=== PATIENT | male | born 1950 | race Caucasian/White ===

== ENCOUNTER 2017-06-25 08:16 | Day surgery (SDC) | payer OTHER, BC ==
[2017-06-21 11:55] VITALS: BMI 27.4
[2017-06-25] MEDS ORDERED: DEXAMETHASONE SOD PHOSPHATE/PF 10 MG/ML SDV ONE (11:16)
[2017-06-25] MEDS ORDERED: ROPIVACAINE HCL 0.5% 30ML VIAL ONE (11:16)
[2017-06-25] MEDS ORDERED: MIDAZOLAM HCL 2 MG/2 ML SINGLE DOSE VIAL ONE (11:16)
[2017-06-25] MEDS ORDERED: EPINEPHrine/PF 1 MG/1 ML (1:1,000) AMPULE ONE ×2 (11:45→12:40)
[2017-06-25] MEDS ORDERED: ceFAZolin SODIUM 1 GM VIAL ONE (12:09)
[2017-06-25] MEDS ORDERED: ONDANSETRON 4 MG/2 ML VIAL ONE (13:10)
[2017-06-25] MEDS ORDERED: HYDROmorphone HCL CARPU-JECT 1 MG/1 ML DISP.SYRIN ONE ×2 (13:15→13:36)
[2017-06-25] MEDS ORDERED: HYDROmorphone HCL CARPU-JECT 1 MG/1 ML DISP.SYRIN IVPUSH ONE ×3 (13:15→13:37)
[2017-06-25] MEDS ORDERED: ONDANSETRON 4 MG/2 ML VIAL IVPUSH PRN (13:22)
[2017-06-25] MEDS ORDERED: oxyCODONE HCL 5 MG TABLET PO PRN (13:22)
[2017-06-25] MEDS ORDERED: LACTATED RINGERS SOLUTION 1,000 ML IV SCH (13:30)
[2017-06-25] MEDS ORDERED: hydrALAZINE HCL 20 MG/ML VIAL IVPUSH ONE ×2 (13:44→14:36)
[2017-06-25] MEDS ORDERED: hydrALAZINE HCL 20 MG/ML VIAL ONE (13:48)
[2017-06-25] MEDS ORDERED: HYDROmorphone HCL CARPU-JECT 1 MG/1 ML DISP.SYRIN IVPUSH PRN (14:35)
[2017-06-25 15:35] VITALS: TEMP 97.5
[2017-06-25 16:12] VITALS: BP 156/86; PULSE 72
--- NOTE | 2017-06-27 23:17 | OP ---
DATE OF OPERATION: 06/25/2017 SURGEON: Larry Garnica MD PROOF CLERK: BELLA Crowley PREOPERATIVE DIAGNOSES: 1. Right shoulder rotator cuff tear. 2. Right shoulder biceps tendon tear, long head. 3. Right shoulder adhesive capsulitis. 4. Right shoulder impingement. 5. Right shoulder acromioclavicular degenerative joint disease. 6. Right shoulder superior, low anterior, and posterior synovitis. POSTOPERATIVE DIAGNOSES: 1. Right shoulder rotator cuff tear. 2. Right shoulder biceps tendon tear, long head. 3. Right shoulder adhesive capsulitis. 4. Right shoulder impingement. 5. Right shoulder acromioclavicular degenerative joint disease. 6. Right shoulder superior, low anterior, and posterior synovitis. PROCEDURES: 1. Right shoulder arthroscopy with arthroscopic rotator cuff repair. 2. Right shoulder arthroscopy with biceps tenodesis. 3. Right shoulder arthroscopy with resection of adhesives. 4. Right shoulder arthroscopy with subacromial decompression. 5. Right shoulder arthroscopy with resection of acromioclavicular joint. 6. Right shoulder arthroscopy with debridement. FINDINGS: 1. Full-thickness rotator cuff tear. 2. Extensive tear and greater than 80% biceps tendon glenohumeral portion, long head. 3. Glenohumeral synovitis. 4. Superior, low anterior, and posterior synovitis to biceps tendon. 5. Diffuse fraying anterior and posterior labrum. 6. Type 2 acromion with thickened scar tissue in the subchondral space. 7. Inferior spurs to the clavicle at the acromioclavicular joint. 8. Full-thickness tear of supraspinatus. 9. Partial tear of subscapularis. REPAIR TYPE: Biceps tendon was released and a biceps repair was placed by placing a suture through the long head of the biceps tendon and securing to the bleeding bone bed along the greater tuberosity. Three anchors were then placed into the supraspinatus and incorporated into the biceps tenodesis into the bleeding bone bed along the long head and biceps tendon. PROCEDURE: Informed consent was obtained. The patient was taken to the operating room where the upper extremity was prepped and draped in a sterile fashion. The shoulder was manipulated for a full range of motion. Posterior incision portal was made and directed to glenohumeral joint. Under direct visualization, an anterior incision and portal was made. Extensive synovitis, as well as chondral injuries throughout the glenohumeral joint were dbrided and removed. Any identified labral injuries, including superior labral tear, anterior and posterior, and anterior labrum torn portions were removed as well. Rotator cuff was visualized and noted to have full-thickness tear. The edges were debrided. Posterior incision portal was redirected to subacromial space where a lateral incision portal was made. Excessive and thickened scar tissue noted throughout the subacromial space, including bursal and scar tissue, were removed. The type 2 acromion was converted into a flattened type 1 using a chip for subacromial decompression. Distal inferior spur at the distal clavicle was also dbrided with the use of accessory portal in the AC joint. The edges of the rotator cuff were identified. Sutures were placed into the rotator cuff and secured using anchors throughout the greater tuberosity. Prior to securing, a bleeding bed was made using a small chip, creating a bleeding surface of the rotator cuff insertion. The shoulder was then drained. A single suture as placed on all portals and a sterile dressing was placed. The patient was transferred to the recovery room without complication. JOHN GARNICA M.D. [id number]
== END 2017-06-25 16:14 | disposition home or self-care (01) ==
LOC: FASU 08:16
PROVIDERS: ATTEND Orthopaedic Surgery
PROC: 0LS24ZZ Reposition Left Shoulder Tendon, Percutaneous Endoscopic Approach (ICD-10-PCS; 2017-06-25)
PROC: 0RNK4ZZ Release Left Shoulder Joint, Percutaneous Endoscopic Approach (ICD-10-PCS; 2017-06-25)
PROC: 0RBK4ZZ Excision of Left Shoulder Joint, Percutaneous Endoscopic Approach (ICD-10-PCS; 2017-06-25)
PROC: 0LB24ZZ Excision of Left Shoulder Tendon, Percutaneous Endoscopic Approach (ICD-10-PCS; principal; 2017-06-25 12:18)
DX: M75.102 Unspecified rotator cuff tear or rupture of left shoulder, not specified as traumatic (principal); S46.112A Strain of muscle, fascia and tendon of long head of biceps, left arm, initial encounter; M75.02 Adhesive capsulitis of left shoulder; M75.42 Impingement syndrome of left shoulder; M19.012 Primary osteoarthritis, left shoulder; M65.812 Other synovitis and tenosynovitis, left shoulder; X58.XXXA Exposure to other specified factors, initial encounter; Y93.9 Activity, unspecified; Y92.9 Unspecified place or not applicable
CPT/HCPCS: 94760

== ENCOUNTER 2024-10-19 05:31 | Day surgery (SDC) | payer OTHER, BC ==
[2024-10-17 17:02] VITALS: BMI 27.4
[2024-10-19] MEDS ORDERED: ACETAMINOPHEN 500 MG TABLET (FP) PO ONE (09:12)
[2024-10-19 16:02] VITALS: BP 140/53; PULSE 56; RESP 18; TEMP 98
== END 2024-10-19 15:46 | disposition home or self-care (01) ==
LOC: JASU-SURG 05:31
PROVIDERS: ATTEND Pain Medicine Pain Medicine
PROC: 3E0T3BZ Introduction of Anesthetic Agent into Peripheral Nerves and Plexi, Percutaneous Approach (ICD-10-PCS; principal; 2024-10-19 15:30)
DX: M47.816 Spondylosis without myelopathy or radiculopathy, lumbar region (principal)
CPT/HCPCS: 76000-TC-FY

== ENCOUNTER 2025-01-18 06:24 | Day surgery (SDC) | payer OTHER, BC ==
[2025-01-16 16:57] VITALS: BMI 27.1
[2025-01-18] MEDS ORDERED: LIDOCAINE HCL/PF 2% SDV 5ML VIAL ONE (07:31)
[2025-01-18 13:09] VITALS: RESP 16
[2025-01-18] MEDS: LIDOCAINE 1% P/F 10 MG/ML VIAL INF ONE (13:33)
[2025-01-18] MEDS: LIDOCAINE HCL 2% 100 MG/5 ML DISP.SYRIN NR ONE (13:34)
[2025-01-18] MEDS: BUPIVACAINE 0.75% IN DEXTROSE/PF 2ML AMPULE NR ONE (13:35)
[2025-01-18] MEDS: BUPIVACAINE HCL/PF 0.5% (5 MG/ML) 30 ML VIAL IJ ONE (13:35)
[2025-01-18] MEDS: DEXAMETHASONE SOD PHOSPHATE 10 MG/1 ML VIAL IVPUSH ONE (13:37)
[2025-01-18 14:19] VITALS: BP 166/80; PULSE 58; TEMP 98.3
== END 2025-01-18 14:20 | disposition home or self-care (01) ==
LOC: JASU-SURG 06:24
PROVIDERS: ATTEND Pain Medicine Pain Medicine
PROC: 015B3ZZ Destruction of Lumbar Nerve, Percutaneous Approach (ICD-10-PCS; principal; 2025-01-18 13:30)
DX: M47.816 Spondylosis without myelopathy or radiculopathy, lumbar region (principal)
CPT/HCPCS: 76000-TC-FY; J1100